=== PATIENT | male | born 1995 | race Two or more races ===

== ENCOUNTER 2024-09-26 16:46 | Emergency (ER) | payer OTHER ==
[~2024-09-26] VITALS: Ht 170.2 cm; Wt 93.0 kg
[2024-09-26] MEDS ORDERED: CARB15DR12 EACH EAR (17:13)
[2024-09-26 17:17] VITALS: BP 132/67; TEMP 98.6; O2SAT 99
== END 2024-09-26 17:18 | disposition home or self-care (01) ==
LOC: ER 16:50
DX: H61.22 Impacted cerumen, left ear (principal); Z88.2 Allergy status to sulfonamides